=== PATIENT | female | born 1945 | race Caucasian/White ===

== ENCOUNTER 2016-09-12 13:15 | Outpatient (RCR) | payer OTHER ==
--- OUTSIDE RECORDS SUMMARY | 2016-09-05 12:46 | XMS REPORT | Continuity of Care Document ---
Author Author [facility] Organization [facility] Address Unknown Phone Unavailable Support Name Relationship Address Phone TRINIDAD TREADWELL MD Caregiver [facility] [address] [facility] [place], [place]. [address] [place] [address] JORGE EDSIR DO Caregiver [address] [place], [place] [id number] ALESSANDRO BONILLA MD Caregiver [facility] [address] [place] [address] UNKNOWN Caregiver Unknown Unavailable KRYSTA HOWARD Next Of Kin [address] [place] [address] Insurance Providers Payer Name Policy Number Subscriber Name [facility] [id number] Renee Howard 18 Self / Same As Patient s Medicare [id number] Renee Howard 18 Self / Same As Patient Advance Directives Directive Response Recorded Date/Time Advance Directives No 09/02/16 11:24am Organ Donor Yes 09/02/16 11:24am Resuscitation Status Full Code 09/02/16 11:24am Chief Complaint and Reason for Visit Chief Complaint SYNCOPE Reason for Visit Hypotension Syncope Problems Active Problems Medical Problem Onset Date Status Hypotension Unknown Acute Syncope Unknown Acute Medications No known medications. Social History Social History Problem Response Recorded Date/Time Alcohol Use Denies Use 09/02/2016 11:24am Recreational Drug Use No 09/02/2016 11:24am Recent Foreign Travel No 09/02/2016 11:24am Recent Infectious Disease Exposure No 09/02/2016 11:24am Hospitalization with Isolation Denies 09/03/2016 3:43pm Smoking Status Never a Smoker 09/02/2016 11:24am Recent Hopitalizations No 09/02/2016 11:24am Hospitalization with Isolation Denies 09/03/2016 3:43pm Query Response Start Date Stop Date Smoking Status Never a Smoker Hospital Discharge Instructions Patient Instructions Physician Instructions Patient Instructions: PT NEEDS TO CHECK BLOOD PRESSURE AT HOME TWICE DAILY - WITH HEART RATE RECORDED AND PT TO BRING TO OFFICE WITH HER AT HER NEXT APPT Resume Normal Activity: Yes Discharge Diet: Regular Diet Diet After 24 Hours: Clear Liquid if Nauseous Drink 6-8 Glasses of Fluid/Day: Yes Driving Instructions: No Driving for 24 Hours Symptoms to Reoprt to Dr.: Appetite Changes, Fever Over 101 Degrees F, Pain/Pressure in Chest, Lightheadedness For Problems or Questions: Contact Your Physician, Go to Emergency Room Infection Signs and Symptoms: Temperature Above 101 F Care Plan Patient Instructions:: PT NEEDS TO CHECK BLOOD PRESSURE AT HOME TWICE DAILY - WITH HEART RATERECORDED AND PT TO BRING TO OFFICE WITH HER AT HER NEXT APPT Plan of Care Discharge Date 09/03/16 2:45pm Disposition 01 HOME, SELF-CARE Instructions/Education Provided Syncope (Fainting) (DC) Prescriptions See Medication Section Referrals [facility] (Unspecified) - 2 Weeks Reason(s) for Referral: Syncope Hypotension Care Plan and Goals See Discharge Instructions Section Functional Status Query Response Date Recorded Patient Orientation Person Place Time Situation September 03, 2016 3:43pm Patient Orientation Person Place Time Situation September 03, 2016 3:43pm Comprehension Ability Understands Concepts September 03, 2016 9:00am Allergies, Adverse Reactions, Alerts No known allergies. Immunizations No immunization records. Vital Signs Acute Vital Signs Vital Response Date/Time Temperature (Fahrenheit) 97.9 degrees F (97.6 - 99.5) 09/03/2016 12:00pm Temperature (Calculated Celsius) 36.71459 degrees C (36.4 - 37.5) 09/03/2016 12:00pm Temperature Source Tympanic 09/03/2016 12:00pm Pulse Rate (adult) 75 bpm (60 - 90) 09/03/2016 1:00pm Respiratory Rate 16 bpm (12 - 24) 09/03/2016 12:00pm O2 Sat by Pulse Oximetry 96 % (88 - 100) 09/03/2016 12:00pm Blood Pressure 120/81 mm Hg 09/03/2016 12:00pm Blood Pressure Mean 94 mm Hg 09/03/2016 12:00pm Pain Numeric Pain Scale 0-No Pain 09/03/2016 12:00pm Pain Numeric Pain Scale 0-No Pain 09/03/2016 12:00pm Height (Feet) 5 feet 09/02/2016 11:24am Height (Inches) 4.00 inches 09/02/2016 11:24am Height (Calculated Centimeters) 162.297123 cm 09/02/2016 11:24am Weight (Pounds) 187 pounds 09/03/2016 6:00am Weight (Ounces) 7.0 oz 09/03/2016 6:00am Weight (Calculated Grams) 37592.221 gm 09/03/2016 6:00am Weight (Calculated Kilograms) 85.931646 kilograms 09/03/2016 6:00am Calculated BMI 32.0 09/02/2016 11:24am Capillary Refill Capillary Refill Less Than 3 Seconds 09/03/2016 9:00am Results Laboratory Results Test Name Result Units Flags Reference Collection Date/Time Result Date/ Time Comments White Blood Count 9.0 10^3/uL 4.3-11.0 09/03/2016 4:00am 09/03/2016 4: 38am Red Blood Count 3.78 10^6/uL L 4.35-5.85 09/03/2016 4:00am 09/03/2016 4: 38am Hemoglobin 11.7 G/DL 11.5-16.0 09/03/2016 4:00am 09/03/2016 4:38am Hematocrit 36 % 35-52 09/03/2016 4:00am 09/03/2016 4:38am Mean Corpuscular Volume 96 FL 80-99 09/03/2016 4:00am 09/03/2016 4: 38am Mean Corpuscular Hemoglobin 31 PG 25-34 09/03/2016 4:00am 09/03/2016 4: 38am Mean Corpuscular Hemoglobin Concent 32 G/DL 32-36 09/03/2016 4:00am 4:38am Red Cell Distribution Width 13.6 % 10.0-14.5 09/03/2016 4:00am 2015 4:38am Platelet Count 248 10^3/uL 130-400 09/03/2016 4:00am 09/03/2016 4:38am Mean Platelet Volume 10.3 FL 7.4-10.4 09/03/2016 4:00am 09/03/2016 4: 38am Neutrophils (%) (Auto) 53 % 42-75 09/03/2016 4:00am 09/03/2016 4:38am Lymphocytes (%) (Auto) 36 % 12-44 09/03/2016 4:00am 09/03/2016 4:38am Monocytes (%) (Auto) 9 % 0-12 09/03/2016 4:00am 09/03/2016 4:38am Eosinophils (%) (Auto) 1 % 0-10 09/03/2016 4:00am 09/03/2016 4:38am Basophils (%) (Auto) 0 % 0-10 09/03/2016 4:00am 09/03/2016 4:38am Neutrophils # (Auto) 4.8 X 10^3 1.8-7.8 09/03/2016 4:00am 09/03/2016 4: 38am Lymphocytes # (Auto) 3.3 X 10^3 1.0-4.0 09/03/2016 4:00am 09/03/2016 4: 38am Monocytes # (Auto) 0.8 X 10^3 0.0-1.0 09/03/2016 4:00am 09/03/2016 4: 38am Eosinophils # (Auto) 0.1 10^3/uL 0.0-0.3 09/03/2016 4:00am 09/03/2016 4 :38am Basophils # (Auto) 0.0 10^3/uL 0.0-0.1 09/03/2016 4:00am 09/03/2016 4: 38am Prothrombin Time 12.3 SEC 12.2-14.7 09/02/2016 8:55am 09/02/2016 9: 19am INR Comment 0.9 0.8-1.4 09/02/2016 8:55am 09/02/2016 9:19am INTERPRETIVE DATA SUGGESTED THERAPEUTIC RANGE FOR INR'S: VENOUS THROMBOSIS, PULMONARY EMBOLISM, OR PREVENTION OF SYSTEMIC EMBOLISM (EG. IN ATRIAL FIBRILLATION): 2.0 - 3.0 MECHANICAL PROSTHETIC HEART VALVES: 2.5 - 3.5* *NOTE: INR'S UP TO 4.5 MAY BE NECESSARY IN SELECTED GROUPS OF HIGH RISK PATIENTS. [employer] [place] [employer] CHEST PH[employer]IC[employer]ANS CONSENSUS CONFERENCE ON ANTITHROMBOTIC THERAPY (2000). Activated Partial Thromboplast Time 25 SEC 24-35 09/02/2016 8:55am 9:19am Sodium Level 139 MMOL/L 135-145 09/03/2016 4:00am 09/03/2016 4:58am Potassium Level 3.8 MMOL/L 3.6-5.0 09/03/2016 4:00am 09/03/2016 4:58am Chloride Level 106 MMOL/L 98-107 09/03/2016 4:00am 09/03/2016 4:58am Carbon Dioxide Level 23 MMOL/L 21-32 09/03/2016 4:00am 09/03/2016 4: 58am Anion Gap 10 MMOL/L 5-14 09/03/2016 4:00am 09/03/2016 4:58am Blood Urea Nitrogen 15 MG/DL 7-18 09/03/2016 4:00am 09/03/2016 4:58am Creatinine 1.00 MG/DL 0.60-1.30 09/03/2016 4:00am 09/03/2016 4:58am BUN/Creatinine Ratio 15 09/03/2016 4:00am 09/03/2016 4:58am Estimat Glomerular Filtration Rate 54 09/03/2016 4:00am 09/03/2016 4:58am GFR INTERPRETIVE DATA UNITS FOR ESTIMATED GFR (eGFR): mL/min/1.73 M2 REFERENCE RANGE FOR ESTIMATED GFR (eGFR) eGFR NORMAL eGFR >60 MODERATELY DECREASED eGFR 30-59 SEVERLY DECREASED eGFR 15-29 KIDNEY FAILURE <15 (OR DIALYSIS) Glucose Level 103 MG/DL 70-105 09/03/2016 4:00am 09/03/2016 4:58am Calcium Level 8.4 MG/DL L 8.5-10.1 09/03/2016 4:00am 09/03/2016 4:58am Magnesium Level 2.2 MG/DL 1.8-2.4 09/02/2016 8:55am 09/02/2016 9:34am Total Bilirubin 0.4 MG/DL 0.1-1.0 09/03/2016 4:00am 09/03/2016 4:58am Alkaline Phosphatase 46 U/L 40-136 09/03/2016 4:00am 09/03/2016 4:58am Aspartate Amino Transf (AST/SGOT) 23 U/L 5-34 09/03/2016 4:00am 2015 4:58am Alanine Aminotransferase (ALT/SGPT) 26 U/L 0-55 09/03/2016 4:00am 09/03 4:58am Troponin I < 0.30 NG/ML <0.30 09/02/2016 8:51pm 09/02/2016 9:17pm Troponin I < 0.30 NG/ML <0.30 09/02/2016 8:55am 09/02/2016 9:37am Myoglobin 44.6 NG/ML 10.0-92.0 09/02/2016 8:55am 09/02/2016 9:37am Total Protein 5.8 G/DL L 6.4-8.2 09/03/2016 4:00am 09/03/2016 4:58am Albumin 3.4 G/DL 3.2-4.5 09/03/2016 4:00am 09/03/2016 4:58am Triglycerides Level 105 MG/DL <150 09/03/2016 4:00am 09/03/2016 4:58am Cholesterol Level 132 MG/DL < 200 09/03/2016 4:00am 09/03/2016 4:58am HDL Cholesterol 38 MG/DL L 40-60 09/03/2016 4:00am 09/03/2016 4:58am LDL Cholesterol Direct 67 MG/DL 1-129 09/03/2016 4:00am 09/03/2016 4: 58am VLDL Cholesterol 21 MG/DL 5-40 09/03/2016 4:00am 09/03/2016 4:58am Procedures Procedure Status Date Provider(s) Tracing only of electrocardiogram Active 09/02/16 TRINIDAD TREADWELL MD Tracing only of electrocardiogram Active 09/02/16 JORGE DESIR DO Tracing only of electrocardiogram Active 09/02/16 JORGE DESIR DO Color Doppler echocardiography Completed 09/02/16 JORGE DESIR DO Encounters Encounter Location Arrival/Admit Date Discharge/Depart Date Attending Provider Admitted Inpatient (obs) [facility] 09/02/16 10:08am JORGE DESIR DO Recent Diagnosis Hypotension Syncope
== END 2016-12-04 | disposition home or self-care (01) ==
LOC: CARD 13:15
PROVIDERS: ATTEND Internal Medicine Interventional Cardiology
DX: R55 Syncope and collapse (principal)
CPT/HCPCS: 93270

== ENCOUNTER 2016-10-10 08:12 | Outpatient (RCR) | payer OTHER, MEDICARE ==
--- OUTSIDE RECORDS SUMMARY | 2016-10-10 08:18 | XMS REPORT | Continuity of Care Document ---
Author Author [facility] Organization [facility] Address Unknown Phone Unavailable Support Name Relationship Address Phone TRINIDAD TREADWELL MD Caregiver [facility] [address] [address], [place]. [address] [place] [address] JORGE DESIR DO Caregiver [address] [place], [place] [id number] ALESSANDRO BONILLA MD Caregiver [facility] [place] [address] [place] [address] UNKNOWN Caregiver Unknown Unavailable KRYSTA HOWARD Next Of Kin [address] [place] [address] Insurance Providers Payer Name Policy Number [facility]scriber [facility] [id number] Renee Howard 18 Self / Same As Patient s Medicare [id number] Renee Howard 18 Self / Same As [...] (Fainting) (DC) Prescriptions See Medication Section Referrals [facility] (Unspecified) - 2 Weeks Reason(s) for [...] - 99.5) 09/03/2016 12:00pm Temperature (Calculated Celsius) 36.07125 degrees C (36.4 - 37.5) 09/03/2016 12:00pm [...] 4.00 inches 09/02/2016 11:24am Height (Calculated Centimeters) 162.010701 cm 09/02/2016 11:24am Weight (Pounds) 187 pounds 09/03/2016 6:00am Weight (Ounces) 7.0 oz 09/03/2016 6:00am Weight (Calculated Grams) 66028.221 gm 09/03/2016 6:00am Weight (Calculated Kilograms) 85.299472 kilograms 09/03/2016 6:00am Calculated BMI 32.0 09/02/2016 [...] SELECTED GROUPS OF HIGH RISK PATIENTS. [employer] [place] [employer] CONSENSUS CONFERENCE ON [...] Date Attending Provider Admitted Inpatient (obs) [facility] 09/02/16 10:08am JORGE DESIR DO Recent Diagnosis Hypotension Syncope
== END 2016-12-18 | disposition home or self-care (01) ==
LOC: CARD 08:12
PROVIDERS: ATTEND Internal Medicine Interventional Cardiology
DX: R55 Syncope and collapse (principal)

== ENCOUNTER → 2017-04-18 | Outpatient (CLI) | payer OTHER ==
--- NOTE | 2017-04-19 08:26 | Diagnostic Imaging Report ---
Bilateral screening mammogram 2D views with tomosynthesis The current study was also evaluated with a Computer Aided Detection (CAD) system. Indication: Screening. No current complaints stated on the questionnaire. COMPARISON: 02/06/2011. FINDINGS: The breasts are composed of scattered fibroglandular densities. There are scattered benign-appearing calcifications. Allowing for technique and positional differences, no suspicious change is seen. IMPRESSION: No significant change. ACR BI-RADS Category 2: Benign findings. Result letter will be mailed to the patient. Note: At least 10% of breast cancer is not imaged by mammography. Dictated by: Dictated on workstation # [id number]
== END ==
LOC: RAD 13:59
PROVIDERS: ATTEND Family Medicine
DX: Z12.31 Encounter for screening mammogram for malignant neoplasm of breast (principal)
CPT/HCPCS: 77067

== ENCOUNTER 2019-05-07 15:10 | Observation (INO) | payer MEDICARE, OTHER ==
[~2019-05-07] VITALS: Ht 152.4 cm; Wt 80.3 kg
[2019-05-07] MEDS ORDERED: LACTATED RINGERS 1,000 ML IV ONE (15:17)
[2019-05-07] MEDS ORDERED: PROMETHAZINE INJ 25 MG/ML (PHENERGAN) AMP ONE (15:23)
[2019-05-07 15:24] LABS: BASOPHILS % (AUTO) 0 % (0-10); EOSINOPHILS # (AUTO) 0.1 10^3/uL (0.0-0.3); EOSINOPHILS % (AUTO) 1 % (0-10); HEMATOCRIT 39 % (35-52); HEMOGLOBIN 12.9 G/DL (11.5-16.0); LYMPHOCYTES # (AUTO) 5.9 X 10^3 (1.0-4.0); LYMPHOCYTES % (AUTO) 47 % (12-44); MEAN CORPUSCULAR HEMOGLOBIN 31 PG (25-34); MEAN CORPUSCULAR HGB CONC 33 G/DL (32-36); MEAN CORPUSCULAR VOLUME 94 FL (80-99); MEAN PLATELET VOLUME 10.5 FL (7.4-10.4); MONOCYTES # (AUTO) 1.3 X 10^3 (0.0-1.0); MONOCYTES % (AUTO) 10 % (0-12); NEUTROPHILS # (AUTO) 5.3 X 10^3 (1.8-7.8); NEUTROPHILS % (AUTO) 42 % (42-75); PLATELET COUNT 291 10^3/uL (130-400); RED CELL DISTRIBUTION WIDTH 14.1 % (10.0-14.5); WHITE BLOOD COUNT 12.7 10^3/uL (4.3-11.0)
[2019-05-07 15:40] LABS: PROTHROMBIN TIME PATIENT 13.2 SEC (12.2-14.7)
[2019-05-07] MEDS ORDERED: HYDR25TA4 PO (15:43)
[2019-05-07] MEDS ORDERED: LISI40TA PO (15:43)
[2019-05-07] MEDS ORDERED: SIMV20TA3 PO (15:43)
[2019-05-07 15:48] LABS: ALANINE AMINOTRANSFERASE 23 U/L (0-55); ALBUMIN 4.1 GM/DL (3.2-4.5); ALKALINE PHOSPHATASE 64 U/L (40-136); BILIRUBIN,TOTAL 0.5 MG/DL (0.1-1.0); BUN/CREATININE RATIO 13; CALCIUM 9.8 MG/DL (8.5-10.1); CARBON DIOXIDE 25 MMOL/L (21-32); CHLORIDE 100 MMOL/L (98-107); CREATININE SERUM 1.08 MG/DL (0.60-1.30); GFR ESTIMATED 49; GLUCOSE 123 MG/DL (70-105); MAGNESIUM 1.4 MG/DL (1.6-2.4); POTASSIUM 3.5 MMOL/L (3.6-5.0); SODIUM 140 MMOL/L (135-145); TOTAL PROTEIN 7.4 GM/DL (6.4-8.2)
[2019-05-07] MEDS ORDERED: PROMETHAZINE INJ 25 MG/ML (PHENERGAN) AMP IVP STA (15:56)
[2019-05-07] MEDS ORDERED: ONDANSETRON 4 MG/2 ML (SDV) Z0FRAN IVP ONE (16:00)
--- NOTE | 2019-05-07 16:15 | Diagnostic Imaging Report ---
INDICATION: Vomiting. COMPARISON: 09/02/2016 FINDINGS: Single frontal view of the chest demonstrates normal heart size and pulmonary vascularity. The lungs show low inspiratory volumes, but are otherwise clear. No large pleural effusion or pneumothorax is seen. The visualized osseous structures show no acute abnormalities. IMPRESSION: 1. No acute cardiopulmonary process. Dictated by: Dictated on workstation # [id number]
--- NOTE | 2019-05-07 16:33 | ED Syncope ---
General Chief Complaint: Cardiac/General Problems Stated Complaint: SYNCOPAL EPISODE Nursing Triage Note: PT PRESENTS TO ED VIA MANAGER WINTER TEAM. PT WAS SPOUSE OF A PT AT THE [facility]. ACCORDING TO MANAGER WINTER RN, PT REPORTS FEELING ILL WHILE IN WAITING ROOM AND STARTED FEELING FAINT AND NAUSEATED. PT HAD A SYNCOPAL EPISODE. PT REPORTED SHE TOOK ONE OF HER HUSBANDS [place] FOR SHOULDER/UPPER BACK PAIN THIS AM WHICH SHE HAS NEVER TAKEN BEFORE. UPON ARRIVL TO ED PT IS RESPONSIVE AND REPORTS SHE IS SICK AND FEELS HOT. PT IS ACTIVELY VOMITING AND DIAPHORETIC . Source of Information: Patient Exam Limitations: No Limitations History of Present Illness Date Seen by Provider: May 07, 2019 Time Seen by Provider: 15:09 Initial Comments Here on a cart from the heart catheter area where she was waiting for family member to be finished with his heart catheter evaluation. When the doctor came out, patient passed out and has been vomiting. She was unresponsive and they could not palpate a pulse initially although they were able to find it. They brought her emergently here where she continued to vomit and the partially unresponsive. Apparently she had pain somewhere and took one of her 's hydrocodone's earlier which may have precipitated the event. She later reported that she had an episode similar to this about 3 years ago at [place]. Very similar presentation and event. She had full cardiac workup at that point and it was all negative and she is worried because she does not want to go through all of that again. Timing/Prior Episodes: Remote History Precipitating Factors: Emotional Stress Loss of Consciousness: Brief (Seconds) Current Symptoms: Lightheadedness, Nausea, Pale, Weak/Absent Pulse Allergies and Home Medications Allergies Coded Allergies: No Known Drug Allergies (Unverified , 09/02/16) Patient Home Medication List Home Medication List Reviewed: Yes Review of Systems Constitutional: see HPI, chills; No fever; weakness Cardiovascular: see HPI; No chest pain; syncope Gastrointestinal: nausea, vomiting Skin: see HPI Psychiatric/Neurological: See HPI Review of systems from later in visit. Currently only with mild nausea but feeling better. All Other Systems Reviewed Negative Unless Noted: Yes Past Qiaxwiy-Bdbqjp-Bappen Hx Past Med/Social Hx: Reviewed Nursing Past Med/Soc Hx Patient Social History Alcohol Use: Denies Use Recreational Drug Use: No Smoking Status: Never a Smoker Recent Foreign Travel: No Contact w/Someone Who Travel: No Recent Infectious Disease Expo: No Recent Hopitalizations: No Physical Abuse: No Sexual Abuse: No Mistreated: No Fear: No Immunizations Up To Date Date of Pneumonia Vaccine: Jun 20, 2016 Date of Influenza Vaccine: Jun 20, 2016 Seasonal Allergies Seasonal Allergies: No Past Medical History Surgeries: Yes Gallbladder Respiratory: No Cardiac: Yes High Cholesterol, Hypertension Neurological: No Reproductive Disorders: No Genitourinary: No Gastrointestinal: No Musculoskeletal: No Endocrine: No Cancer: No Psychosocial: No Integumentary: No Blood Disorders: No Family Medical History Reviewed Nursing Family Hx No Pertinent Family Hx Physical Exam Vital Signs Vital Signs - First Documented 05/07/19 15:19 Temp 96.5 Pulse 65 Resp 14 B/P (MAP) 112/57 (75) Pulse Ox 98 Capillary Refill : Less Than 3 Seconds Height, Weight, BMI Height: 5'4.00" Weight: 177lbs. 7.0oz. 80.586303gm; 32.0 BMI Method:Stated General Appearance: WD/WN, Moderate Distress HEENT: PERRL/EOMI, Pharynx Normal Neck: Non Tender, Supple Cardiovascular: No Murmur, Bradycardia Respiratory: Lungs Clear, Normal Breath Sounds Gastrointestinal: Non Tender, Soft Back: Normal Inspection, No CVA Tenderness, No Vertebral Tenderness Extremities: Normal Range of Motion, Non Tender Neurologic/Psychiatric: Alert, Other (initially week response and somnolent but has improved through the ED visit and now is alert and oriented 3) Cranial Nerves: Normal Hearing, Normal Speech, PERRL Motor/Sensory: No Motor Deficit, No Sensory Deficit Skin: Normal Color, Cool, Diaphoresis, Pallor Progress/Results/Core Measures Results/Orders Lab Results Laboratory Tests Test 05/07/19 15:15 Range/Units White Blood Count 12.7 H 4.3-11.0 10^3/uL Red Blood Count 4.18 L 4.35-5.85 10^6/uL Hemoglobin 12.9 11.5-16.0 G/DL Hematocrit 39 35-52 % Mean Corpuscular Volume 94 80-99 FL Mean Corpuscular Hemoglobin 31 25-34 PG Mean Corpuscular Hemoglobin Concent 33 32-36 G/DL Red Cell Distribution Width 14.1 10.0-14.5 % Platelet Count 291 130-400 10^3/uL Mean Platelet Volume 10.5 H 7.4-10.4 FL Neutrophils (%) (Auto) 42 42-75 % Lymphocytes (%) (Auto) 47 H 12-44 % Monocytes (%) (Auto) 10 0-12 % Eosinophils (%) (Auto) 1 0-10 % Basophils (%) (Auto) 0 0-10 % Neutrophils # (Auto) 5.3 1.8-7.8 X 10^3 Lymphocytes # (Auto) 5.9 H 1.0-4.0 X 10^3 Monocytes # (Auto) 1.3 H 0.0-1.0 X 10^3 Eosinophils # (Auto) 0.1 0.0-0.3 10^3/uL Basophils # (Auto) 0.0 0.0-0.1 10^3/uL Prothrombin Time 13.2 12.2-14.7 SEC INR Comment 1.0 0.8-1.4 Activated Partial Thromboplast Time 28 24-35 SEC Sodium Level 140 135-145 MMOL/L Potassium Level 3.5 L 3.6-5.0 MMOL/L Chloride Level 100 98-107 MMOL/L Carbon Dioxide Level 25 21-32 MMOL/L Anion Gap 15 H 5-14 MMOL/L Blood Urea Nitrogen 14 7-18 MG/DL Creatinine 1.08 0.60-1.30 MG/DL Estimat Glomerular Filtration Rate 49 BUN/Creatinine Ratio 13 Glucose Level 123 H 70-105 MG/DL Calcium Level 9.8 8.5-10.1 MG/DL Corrected Calcium 9.7 8.5-10.1 MG/DL Magnesium Level 1.4 L 1.6-2.4 MG/DL Total Bilirubin 0.5 0.1-1.0 MG/DL Aspartate Amino Transf (AST/SGOT) 28 5-34 U/L Alanine Aminotransferase (ALT/SGPT) 23 0-55 U/L Alkaline Phosphatase 64 40-136 U/L Myoglobin 45.6 10.0-92.0 NG/ML Troponin I < 0.028 <0.028 NG/ML Total Protein 7.4 6.4-8.2 GM/DL Albumin 4.1 3.2-4.5 GM/DL My Orders Orders - TURNER BURGESS MD Cbc With Automated Diff (05/07/19 15:17) Magnesium (05/07/19 15:17) Chest 1 View, Ap/Pa Only (05/07/19 15:17) Ekg Tracing (05/07/19 15:17) Cardiac Profile 1 (05/07/19 15:17) Comprehensive Metabolic Panel (05/07/19 15:17) Myoglobin Serum (05/07/19 15:17) Protime With Inr (05/07/19 15:17) Partial Thromboplastin Time (05/07/19 15:17) O2 (05/07/19 15:17) Monitor-Rhythm Ecg Trace Only (05/07/19 15:17) Lipid Panel (05/08/19 06:00) Ed Iv/Invasive Line Start (05/07/19 15:17) Lactated Ringers (Lr 1000 Ml Iv Solution (05/07/19 15:17) Promethazine Injection (Phenergan Injec (05/07/19 15:23) Promethazine Injection (Phenergan Injec (05/07/19 15:56) Ondansetron Injection (Zofran Injectio (05/07/19 16:00) Medications Given in ED Current Medications Medications Dose Ordered Sig/Andrew Route Start Time Stop Time Status Last Admin Dose Admin Lactated Ringer's 1,000 ml @ 0 mls/hr Q0M ONCE IV 05/07/19 15:17 05/07/19 15:19 DC 05/07/19 15:38 0 MLS/HR Ondansetron HCl 8 mg ONCE ONCE IVP 05/07/19 16:00 05/07/19 16:01 DC 05/07/19 15:30 8 MG Vital Signs/I&O 05/07/19 15:19 Temp 96.5 Pulse 65 Resp 14 B/P (MAP) 112/57 (75) Pulse Ox 98 Blood Pressure Mean: 75 Progress Progress Note : Progress Note Seen and evaluated. IV, labs, chest x-ray, EKG and LR 1 L bolus ordered. Zofran 8 mg IV ordered. This did not stop the vomiting. Promethazine 6.25 mg IV ordered. Monitor patient. 1635: Patient doing a little better but still weak and shaky. The vomiting has improved. Patient did relay that this event has happened previously as discussed in the history of present illness. She is worried be cause she does not want to go through full cardiac workup but is agreeable to staying in observation given her severity of event. I did discuss the case with Dr. Moreno who agrees. Admit, observation status. 1647: I have consulted Dr. Ivy, who will also see her. We will continue Zofran and promethazine when necessary as well as IV fluids and initiate clear liquids overnight. Admit, observation status. Patient agrees to plan. Initial ECG Impression Date: May 07, 2019 Initial ECG Impression Time: 15:13 Initial ECG Rate: 60 Initial ECG Rhythm: Normal Sinus Initial ECG Impression: Normal Initial ECG Comparisson: Unchanged Comment Sinus rhythm with normal axis. No evidence of ST elevation AK. Similar to previous of 02 September 2016. Interpreted by me. Diagnostic Imaging Diagonstic Imaging: Xray Plain Films/CT/US/NM/MRI: chest Comments [facility] [place], [place] NAME: MOR HOWARD [facility] REC#: [id number] PT STATUS: REG ER : 1945 PHYSICIAN: TURNER BURGESS MD ADMIT DATE: 05/07/19/ER Draft Date of Exam:05/07/19 CHEST 1 VIEW, AP/PA ONLY INDICATION: Vomiting. COMPARISON: 09/02/2016 FINDINGS: Single frontal view of the chest demonstrates normal heart size and pulmonary vascularity. The lungs show low inspiratory volumes, but are otherwise clear. No large pleural effusion or pneumothorax is seen. The visualized osseous structures show no acute abnormalities. IMPRESSION: 1. No acute cardiopulmonary process. Dictated on workstation # [id number] Dict: 05/07/19 1612 Trans: 05/07/19 1614 [facility] [id number] Interpreted by: ALINA CONN MD Electronically signed by: Departure Communication (Admissions) Time/Spoke to Admitting Phy: 16:35 Time/Spoke to Consulting Phy: 16:47 Impression Primary Impression: Syncope Qualified Codes: R55 - Syncope and collapse Additional Impression: Nausea and vomiting Qualified Codes: R11.2 - Nausea with vomiting, unspecified Disposition: ADMITTED INPATIENT Condition: Stable Admissions Decision to Admit Reason: Admit from ER (General) Decision to Admit/Date: May 07, 2019 Time/Decision to Admit Time: 16:35 Departure-Patient Inst. Referrals: FRANCO MORENO MD (PCP/Family) Primary Care Physician TURNER BURGESS MD May 07, 2019 16:32
--- NOTE | 2019-05-07 17:14 | Consultation-Cardiology ---
HPI-Cardiology Cardiology Consultation: Date of Consultation 05/07/19 Date of Admission Attending Physician Admitting Physician Marija Moreno MD Consulting Physician Jennyfer IVY MD HPI: Time Seen by a Provider: 17:38 Chief Complaint: syncope this is a 73-year-old lady with history of hypertension and hyperlipidemia on medications. She was visiting the hospital to see her who was having her cardiology procedure. She had taken hydrocodone at around noontime today. In the cardiac catheterization lab while waiting for her procedure to finish, she started to feel unwell. Our nurse in the lab had her sit down. She briefly spoke to me about her were told us that she was not feeling very well. And then she became unresponsive. We quickly put her on a bed. She had cool clammy extremities with feeble pulse. We were going to start CPR but with a sternal rub, she became responsive. Blood pressure was 73 systolic. We quickly rushed her to the ER where she vomited profusely and complained of belly discomfort. Heart rate was in the 60s and initial EKG showed sinus rhythm with no acute ST-T wave abnormalities. I came back to the cardiac catheterization lab for another procedure. After finishing the procedure I went back to see her. She was feeling much better and not complaining of any significant cardiac symptoms. Her heart rate was sinus rhythm at 51 BPM. Initial blood pressure 90 systolic. Repeat blood pressure was 110 systolic. She is receiving IV fluids. Review of Systems-Cardiology Review of Systems Constitutional: As described under HPI; No As described under HPI, No no symptoms reported, No chills, No fever, No lightheadedness Eyes: No As described under HPI, No no symptoms reported, No blindness, No blurred vision, No contact lenses, No drainage, No decreased acuity, No foreign body sensation, No pain, No vision change Ears/Nose/Throat: No As described under HPI, No no symptoms reported, No chronic hearing loss, No ear discharge, No ear pain, No nasal drainage, No ulcerations Respiratory: No no symptoms reported; As described under HPI; No As described under HPI, No cough, No orthopnea, No shortness of breath, No SOB with excertion Cardiovascular: syncope Gastrointestinal: nausea/vomiting/diarrhea Genitourinary: No As described under HPI, No burning, No dysuria, No discharge, No frequency, No flank pain, No hematuria, No urgency : Yes : No Skin: No rash, No skin related problems, No ulcerations Psychiatric/Neurological: No anxiety, No depression, No seizure, No focal weakness, No syncope Hematologic: No bleeding abnormalities All Other Systems Reviewed Negative Unless Noted: Yes DFG-Fqjphf-Jfzgch Hx Patient Social History Alcohol Use: Denies Use Recreational Drug Use: No Smoking Status: Never a Smoker Recent Foreign Travel: No Recent Infectious Disease Expo: No Immunizations Up To Date Date of Pneumonia Vaccine: Jun 20, 2016 Date of Influenza Vaccine: Jun 20, 2016 Past Medical History PMH As described under Assessment. Allergies and Home Medications Allergies Coded Allergies: No Known Drug Allergies (Unverified , 09/02/16) Patient Home Medication List Home Medication List Reviewed: Yes Physical Exam-Cardiology Physical Exam Vital Signs/I&O 05/07/19 15:19 Temp 96.5 Pulse 65 Resp 14 B/P (MAP) 112/57 (75) Pulse Ox 98 Capillary Refill : Less Than 3 Seconds Constitutional: appears stated age, AAO x 3; No apparent distress; well-dev eloped, well-nourished HEENT: PERRL; No discharge; hearing is well preserved, oral hygience is good; No ulceration, No xanthelasmas are seen Neck: No carotid bruit; carotid pulses are 2 + bilaterally Respiratory: No accessory muscle use, No respiratory distress, No chest tender, No chest expansion is symmetric; chest is bilaterally symmetric; No lungs clear to percussion; lungs clear to auscultation; No crackles, No rhonchi, No rales, No stridor, No wheezing, No pleural rub, No other Cardiovascular: regular rate-rhythm; No irregularly irregular, No extra beats, No parasternal heave is noted, No JVD, No edema; bradycardia; No tachycardia, No point of maximal impulse, No cardiac thrills are palpable; S1 and S2; No gallop/S3, No gallop/S4, No diastolic murmur; systolic murmur; No friction rub, No click, No other Gastrointestinal: No tender; soft; No round, No distended, No pulsatile mass, No organomegaly, No guarding, No rebound, No tenderness, No hernia, No mass; audible bowel sounds; No abnormal bowel sounds, No abdominal bruits, No spleenomegaly, No other Rectal: deferred Extremities: normal range of motion, non-tender, normal inspection; No clubbing, No cyanosis, No significant edema Neurologic/Psychiatric: No astrobiologist II-XII nml as tested; no motor/sensory deficits, alert, normal mood/affect, oriented x 3; No abnormal cerebellar tests, No ab normal astrobiologist II-XII, No abnormal gait, No aphasia, No EOM palsy, No facial droop, No motor weakness, No sensory deficit, No depressed affect, No disoriented x 3, No other, No grossly intact; power is 5/5 both on sides Skin: No rash, No ulcerations Data Review Labs Laboratory Tests 05/07/19 15:15: White Blood Count 12.7H, Red Blood Count 4.18L, Hemoglobin 12.9, Hematocrit 39, Mean Corpuscular Volume 94, Mean Corpuscular Hemoglobin 31, Mean Corpuscular Hemoglobin Concent 33, Red Cell Distribution Width 14.1, Platelet Count 291, Mean Platelet Volume 10.5H, Neutrophils (%) (Auto) 42, Lymphocytes (%) (Auto) 47H, Monocytes (%) (Auto) 10, Eosinophils (%) (Auto) 1, Basophils (%) (Auto) 0, Neutrophils # (Auto) 5.3, Lymphocytes # (Auto) 5.9H, Monocytes # (Auto) 1.3H, Eosinophils # (Auto) 0.1, Basophils # (Auto) 0.0, Prothrombin Time 13.2, INR Comment 1.0, Activated Partial Thromboplast Time 28, Sodium Level 140, Potassium Level 3.5L, Chloride Level 100, Carbon Dioxide Level 25, Anion Gap 15H, Blood Urea Nitrogen 14, Creatinine 1.08, Estimat Glomerular Filtration Rate 49, BUN/Creatinine Ratio 13, Glucose Level 123H, Calcium Level 9.8, Corrected Calcium 9.7, Magnesium Level 1.4L, Total Bilirubin 0.5, Aspartate Amino Transf (AST/SGOT) 28, Alanine Aminotransferase (ALT/SGPT) 23, Alkaline Phosphatase 64, Myoglobin 45.6, Troponin I < 0.028, Total Protein 7.4, Albumin 4.1 ECG Impression ECG Initial ECG Rhythm: Normal Sinus Initial ECG Impression: Normal A/P-Cardiology Assessment/Admission Diagnosis syncope, hypotension, Vomiting, Hypertension, Hyperlipidemia, Hypomagnesemia, Hypokalemia Mild mitral stenosis. Plan syncope, continue telemetry monitoring overnight. Echocardiogram. Serial troponin. I spoke about an event monitor and possible implantable loop recorder in the future. Patient is hesitant to do an event monitor and an implantable loop recorder. However she will think about it overnight and let us know in the morning. syncope could be vasovagal in nature due to significant vomiting. She was significantly hypotensive.which could be due to vagovagal syncope. IV fluids were given with improvement. Vomiting,likely due to hydrocodone. Hypertension,no medications at this point in time. Hyperlipidemia,simvastatin. Hypomagnesemia,replace per protocol. Hypokalemia, place per protocol. Mild mitral stenosis. echocardiogram. Thank you for your consultation. Please call me if you have any questions. Taylor Ivy MD, FACP, FACC, FSCAI, FHRS, CCDS Interventional Cardiology Cardiac Electrophysiology Vascular Medicine and Endovascular Interventions eJnnyfer IVY MD May 07, 2019 17:14
[2019-05-07] MEDS ORDERED: NS IV 1000 ML 1,000 ML IV SCH (17:30)
--- NOTE | 2019-05-07 18:05 | NUR ---
PT ARRIVED TO FLOOR VIA CART FROM ED. ADMITTED TO ROOM 406 WITH ADMITTING DIAGNOSIS OF VASOVAGAL, SYNCOPE, N/V. PT IS A/O X4. REPORTS FEELING NAUSEATED FROM THE RIDE UP TO ROOM. IV TO LEFT AC INTACT WITH NS RUNNING AT 100ML/HR. PT ORIENTED TO ROOM. CALL LIGHT WITHIN REACH. REQUESTING CLEAR LIQUID TRAY.
[2019-05-07 18:30] VITALS: BP 116/79
[2019-05-07 18:32] VITALS: BP 116/79
[2019-05-07] MEDS ORDERED: CATHETER FLUSH 10 ML SYR IV PRN (19:15)
[2019-05-07] MEDS ORDERED: ONDANSETRON 4 MG/2 ML (SDV) Z0FRAN IV PRN (19:15)
[2019-05-07] MEDS ORDERED: PROMETHAZINE INJ 25 MG/ML (PHENERGAN) AMP IV PRN (19:15)
[2019-05-07] MEDS ORDERED: ACETAMINOPHEN 500 MG TAB (TYLENOL) PO PRN (19:15)
[2019-05-07] MEDS: NS IV 1000 ML 1,000 ML IV SCH (19:39)
[2019-05-07 19:40] VITALS: BP 94/58
[2019-05-07 23:53] VITALS: BP 92/57
[2019-05-08 04:23] VITALS: BP 112/62
[2019-05-08] MEDS: NS IV 1000 ML 1,000 ML IV SCH (04:26)
[2019-05-08 05:58] LABS: BASOPHILS % (AUTO) 0 % (0-10); EOSINOPHILS # (AUTO) 0.1 10^3/uL (0.0-0.3); EOSINOPHILS % (AUTO) 1 % (0-10); HEMATOCRIT 36 % (35-52); HEMOGLOBIN 11.7 G/DL (11.5-16.0); LYMPHOCYTES % (AUTO) 39 % (12-44); MEAN CORPUSCULAR HEMOGLOBIN 31 PG (25-34); MEAN CORPUSCULAR HGB CONC 33 G/DL (32-36); MEAN CORPUSCULAR VOLUME 96 FL (80-99); MEAN PLATELET VOLUME 11.3 FL (7.4-10.4); MONOCYTES # (AUTO) 0.8 X 10^3 (0.0-1.0); MONOCYTES % (AUTO) 10 % (0-12); NEUTROPHILS # (AUTO) 3.8 X 10^3 (1.8-7.8); NEUTROPHILS % (AUTO) 49 % (42-75); PLATELET COUNT 202 10^3/uL (130-400); RED CELL DISTRIBUTION WIDTH 13.9 % (10.0-14.5); WHITE BLOOD COUNT 7.7 10^3/uL (4.3-11.0)
[2019-05-08 06:27] LABS: ALANINE AMINOTRANSFERASE 28 U/L (0-55); ALBUMIN 3.5 GM/DL (3.2-4.5); ALKALINE PHOSPHATASE 46 U/L (40-136); BILIRUBIN,TOTAL 0.6 MG/DL (0.1-1.0); BUN/CREATININE RATIO 15; CALCIUM 8.8 MG/DL (8.5-10.1); CARBON DIOXIDE 22 MMOL/L (21-32); CHLORIDE 104 MMOL/L (98-107); CHOLESTEROL 139 MG/DL (< 200); CREATININE SERUM 0.92 MG/DL (0.60-1.30); GFR ESTIMATED 60; GLUCOSE 96 MG/DL (70-105); HDL CHOLESTEROL 45 MG/DL (40-60); POTASSIUM 3.5 MMOL/L (3.6-5.0); SODIUM 141 MMOL/L (135-145); TOTAL PROTEIN 6.2 GM/DL (6.4-8.2); TRIGLYCERIDES 115 MG/DL (<150); VLDL CHOLESTEROL 23 MG/DL (5-40)
[2019-05-08 08:00] VITALS: BP 94/59
--- NOTE | 2019-05-08 09:39 | Short Stay Summary ---
History of Present Illness History of Present Illness Reason for visit/HPI PT IS A 73 Y/O FEMALE WHO IS KNOWN TO ME FROM CLINIC. SHE PRESENTED TO THE ER AFTER HAVING A SYNCOPAL EPISODE IN THE WAITING ROOM OF THE CARDIAC STORE GIFT [employer] [facility]. THE PATIENT'S WAS HAVING A PROCEDURE ON SATURDAY AND SHE WAS HAVING QUITE A BIT OF PAIN IN HER UPPER BACK, SO SHE TOOK ONE OF HIS OLD HYDROCODONE SO THAT SHE WOULD BE ABLE TO STAND SITTING FOR MOST OF THE DAY. SHE REPORTS THAT SHE DID NOT HAVE ANY TROUBLE WITH THE MEDICATION MAKING HER FEEL BAD, SHE SAT IN THE WAITING AREA FOR A FEW HOURS, THEN STOOD UP AND AMBULATED TO THE HALLWAY WHERE SHE SAW HER AND WAS GIVEN THE REPORT ON HIS CATH. SHE STATES THAT SHE STARTED TO FEEL LIGHT-HEADED, BECAME DIZZY, SAT DOWN AND THE NEXT THING SHE REMEMBERED SHE WAS BEING WHEELED TO THE ER ON A STRETCHER. SHE STATES THAT SHE HAS NOT HAD ANY CHEST PAIN, OTHER DIZZINESS, SHORTNESS OF BREATH, ABDOMINAL PAIN, NAUSEA, OR OTHER PROBLEMS PRIOR TO THIS HOSPITALIZATION. Date of Admission May 07, 2019 at 17:00 Date of Discharge 05/08/19 @1000 Time Seen by Provider: 09:15 Attending Physician Franco Moreno MD Admitting Physician Franco Moreno MD Consult DR. RASMUSSEN Allergies and Home Medications Allergies Coded Allergies: No Known Drug Allergies (Unverified , 09/02/16) Home Medications Olmesartan Medoxomil 40 Mg Tablet, 40 MG PO DAILY if sbp is less than or equal to 115, hold the medication, check bp in 2 hours, if bp is normal then take the medication Prescribed by: FRANCO MORENO on 05/08/19 0945 Simvastatin 20 Mg Tablet, 20 MG PO HS, (Reported) Patient Home Medication List Home Medication List Reviewed: Yes Past Cdtdgak-Cbovkh-Kfyakj Hx Patient Social History Marrital Status: Living Status: LIVES AT HOME WITH HER Employed/Student: retired Alcohol Use: Denies Use Recreational Drug Use: No Smoking Status: Never a Smoker 2nd Hand Smoke Exposure: No Physical Abuse Screen: No Sexual Abuse: No Recent Foreign Travel: No Contact w/other who traveled: No Recent Hopitalizations: No Recent Infectious Disease Expo: No Immunizations Up To Date Date of Pneumonia Vaccine: May 07, 2016 Date of Influenza Vaccine: Jun 20, 2016 Seasonal Allergies Seasonal Allergies: No Surgeries Yes Gallbladder Respiratory No Cardiovascular Yes High Cholesterol, Hypertension Neurological No Reproductive System : No Hx Reproductive Disorders: No Sexually Transmitted Disease: No HIV/AIDS: No Female Reproductive Disorders: Denies Genitourinary No Gastrointestinal No Musculoskeletal No Endocrine History of Endocrine Disorders: No Cancer No Psychosocial History of Psychiatric Problem: No Integumentary History of Skin or Integumenta: No Blood Transfusions History of Blood Disorders: No Reviewed Nursing Assessment Reviewed/Agree w Nursing PMH: Yes Family Medical History Significant Family History: Cancer, Hypertension Family Hx: FHx: brain tumor 19 FATHER Hypertension 19 FATHER 19 MOTHER Review of Systems Constitutional: No chills, No fever, No malaise, No weakness EENTM: No hearing loss, No vision loss, No throat pain Respiratory: No cough, No dyspnea on exertion, No short of breath Cardiovascular: No chest pain, No edema, No palpitations Gastrointestinal: No abdominal pain, No constipation, No diarrhea, No nausea Genitourinary: no symptoms reported; No dysuria, No frequency Musculoskeletal: no symptoms reported Skin: no symptoms reported Psychiatric/Neurological: No Symptoms Reported; Denies Anxiety, Denies Depressed, Denies Weakness All Other Systems Reviewed Negative Unless Noted: Yes Physical Exam Vital Signs Vital Signs - First Documented 05/07/19 05/07/19 15:19 16:30 Temp 96.5 Pulse 65 Resp 14 B/P (MAP) 112/57 (75) Pulse Ox 98 O2 Delivery Nasal Cannula O2 Flow Rate 2.00 Capillary Refill : Less Than 3 Seconds Height, Weight, BMI Height: 5'0.00" Weight: 177lbs. 0.0oz. [id number]; 32.0 BMI Method:Stated General Appearance: No Apparent Distress, WD/WN Eyes: Bilateral Eye Normal Inspection, Bilateral Eye PERRL, Bilateral Eye EOMI HEENT: PERRL/EOMI, Pharynx Normal Neck: Full Range of Motion, Non Tender, Supple Respiratory: Chest Non Tender, Lungs Clear, Normal Breath Sounds, No Accessory Muscle Use, No Respiratory Distress Cardiovascular: Regular Rate, Rhythm, No Edema, Normal Peripheral Pulses Gastrointestinal: Normal Bowel Sounds, No Organomegaly, Non Tender, Soft Rectal: Deferred Back: Normal Inspection, Other (TTP ALONG RIGHT UPPER BACK NEAR SCAPULA) Extremity: Normal Capillary Refill, Normal Inspection, Non Tender, No Calf Tenderness Neurologic/Psychiatric: Alert, Oriented x3, No Motor/Sensory Deficits, Normal Mood/Affect, smash piecer II-XII Norm as Tested Skin: Normal Color, Warm/Dry Lymphatic: No Adenopathy Clinical Quality Measures DVT/VTE Risk/Contraindication: Risk Factor Score Per Nursin RFS Level Per Nursing on Admit: 2=Moderate Short Stay Diagnosis Discharge Diagnosis-Short Stay Admission Diagnosis: SYNCOPAL EPISODE HYPERTENSION - CHRONIC ACUTE HYPOTENSION HYPERTENSION HYPOKALEMIA HYPOMAGNESEMIA EMESIS Final Discharge Diagnosis: SYNCOPAL EPISODE HYPERTENSION - CHRONIC ACUTE HYPOTENSION HYPERTENSION HYPOKALEMIA HYPOMAGNESEMIA EMESIS Conclusion Labs Laboratory Tests 05/07/19 15:15: White Blood Count 12.7H, Red Blood Count 4.18L, Hemoglobin 12.9, Hematocrit 39, Mean Corpuscular Volume 94, Mean Corpuscular Hemoglobin 31, Mean Corpuscular Hemoglobin Concent 33, Red Cell Distribution Width 14.1, Platelet Count 291, Mean Platelet Volume 10.5H, Neutrophils (%) (Auto) 42, Lymphocytes (%) (Auto) 47H, Monocytes (%) (Auto) 10, Eosinophils (%) (Auto) 1, Basophils (%) (Auto) 0, Neutrophils # (Auto) 5.3, Lymphocytes # (Auto) 5.9H, Monocytes # (Auto) 1.3H, Eosinophils # (Auto) 0.1, Basophils # (Auto) 0.0, Prothrombin Time 13.2, INR Comment 1.0, Activated Partial Thromboplast Time 28, Sodium Level 140, Potassium Level 3.5L, Chloride Level 100, Carbon Dioxide Level 25, Anion Gap 15H, Blood Urea Nitrogen 14, Creatinine 1.08, Estimat Glomerular Filtration Rate 49, BUN/Creatinine Ratio 13, Glucose Level 123H, Calcium Level 9.8, Corrected Calcium 9.7, Magnesium Level 1.4L, Total Bilirubin 0.5, Aspartate Amino Transf (AST/SGOT) 28, Alanine Aminotransferase (ALT/SGPT) 23, Alkaline Phosphatase 64, Myoglobin 45.6, Troponin I < 0.028, Total Protein 7.4, Albumin 4.1 05/08/19 04:50: Sodium Level 141, Potassium Level 3.5L, Chloride Level 104, Carbon Dioxide Level 22, Anion Gap 15H, Blood Urea Nitrogen 14, Creatinine 0.92, Estimat Glomerular Filtration Rate 60, BUN/Creatinine Ratio 15, Glucose Level 96, Calcium Level 8.8, Corrected Calcium 9.2, Total Bilirubin 0.6, Aspartate Amino Transf (AST/SGOT) 24, Alanine Aminotransferase (ALT/SGPT) 28, Alkaline Phosphatase 46, Troponin I < 0.028, Total Protein 6.2L, Albumin 3.5, Triglycerides Level 115, Cholesterol Level 139, LDL Cholesterol Direct 66, VLDL Cholesterol 23, HDL Cholesterol 45 05/08/19 05:30: White Blood Count 7.7, Red Blood Count 3.73L, Hemoglobin 11.7, Hematocrit 36, Mean Corpuscular Volume 96, Mean Corpuscular Hemoglobin 31, Mean Corpuscular Hemoglobin Concent 33, Red Cell Distribution Width 13.9, Platelet Count 202, Mean Platelet Volume 11.3H, Neutrophils (%) (Auto) 49, Lymphocytes (%) (Auto) 39, Monocytes (%) (Auto) 10, Eosinophils (%) (Auto) 1, Basophils (%) (Auto) 0, Neutrophils # (Auto) 3.8, Lymphocytes # (Auto) 3.0, Monocytes # (Auto) 0.8, Eosinophils # (Auto) 0.1, Basophils # (Auto) 0.0 Conclusion/Plan SYNCOPAL EPISODE HYPERTENSION - CHRONIC ACUTE HYPOTENSION HYPOKALEMIA HYPOMAGNESEMIA EMESIS SYNCOPAL EPISODE - DISCUSSED WITH PT - THIS IS MULTIFACTORIAL - DUE TO MEDICATION, NEED TO RULE OUT CARDIAC CAUSES, PT TO HAVE AN EVENT MONITOR PLACED, AND TO SEE DR. RASMUSSEN IN FOLLOW UP AN OUTPATIENT. HYPERTENSION - CHRONIC WITH AN EPISODE OF ACUTE HYPOTENSION - STOP HCTZ, CONTINUE WITH OLMESARTAN. HYPOKALEMIA AND HYPOMAGNESEMIA - REPLENISHED WITH IV AND ORAL SUPPLEMENTATION. EMESIS - RESOLVED AFTER FLUIDS AND ZOFRAN. DISCHARGE TO HOME WITH NEW MEDICATION REGIMEN. MONITOR SYMPTOMS, FOLLOW UP WITH DR. MORENO'S OFFICE IN 1 WEEK. FRANCO MORENO MD May 08, 2019 09:39
[2019-05-08] MEDS ORDERED: OLME40TA18 PO (09:45)
--- NOTE | 2019-05-08 09:47 | Discharge Inst-Complex ---
PDI Reconcile Patient Problems Problems Reviewed?: Yes Med Rec & Follow Up Appt. Prescription: Transmitted to Pharmacy Activity, Diet and PDI Resume Normal Activity: Yes Discharge Diet: Regular Diet Diet for 24 Hours: No Alcohol, No [employer] Diet After 24 Hours: Clear Liquid if Nauseous Drink 6-8 Glasses of Fluid/Day: Yes Driving Instructions: No Driving for 24 Hours Return to The Hospital For: any concern for chest pain, shortness of breath, abdominal pain, nausea or any lifethreatening illness or injury Symptoms to Reoprt to : Numbness/Tingling, Fever Over 101 Degrees F, Pain/Pressure in Chest, Lightheadedness, Nausea/Vomiting, Shortness of Breath For Problems or Questions: Contact Your Physician, Go to Emergency Room Infection Signs and Symptoms: Temperature Above 101 F FRANCO CHOW MD May 08, 2019 09:47
--- NOTE | 2019-05-08 09:47 | NUR ---
UPDATED MED REC WITH WHAT HAS BEEN FILLED RECENTLY ACCORDING TO THE EXT MED HX. DISCHARGE ORDERS WERE ENTERED BEFORE I WAS ABLE TO VERIFY WITH THE PATIENT. SHE VERIFIED THE PRESCRIPTIONS WERE CORRECT. ADDITIONALLY SHE TAKES A CALCIUM +D AND VITAMIN D OTC. I DID NOT HAVE A CHANCE TO ADD THESE TO THE MED REC PRIOR TO DISCHARGE ORDERS.
--- NOTE | 2019-05-08 10:54 | NUR ---
provided prayer and Communion.
--- NOTE | 2019-05-08 13:04 | Cardiology Progress Note ---
Cardiology SOAP Progress Note Subjective: No further cardiac complaints. Objective: I&O/Vital Signs 05/08/19 05/08/19 05/08/19 05/08/19 04:23 07:00 08:00 08:00 Temp 98.0 98.0 Pulse 62 64 65 Resp 18 18 B/P (MAP) 112/62 (79) 94/59 (71) Pulse Ox 98 96 O2 Delivery Room Air Room Air Room Air 05/08/19 00:00 Intake Total 1840 ml Output Total 550 ml Balance 1290 ml Weight (Pounds): 177 Weight (Ounces): 0.0 Weight (Calculated Kilograms): 80.132627 Constitutional: appears stated age, AAO x 3; No apparent distress; well- developed, well-nourished Respiratory: No accessory muscle use, No respiratory distress, No chest tender, No chest expansion is symmetric; chest is bilaterally symmetric; No lungs clear to percussion; lungs clear to auscultation; No crackles, No rhonchi, No rales, No stridor, No wheezing, No pleural rub, No other Cardiovascular: regular rate-rhythm; No irregularly irregular, No extra beats, No parasternal heave is noted, No JVD, No edema; bradycardia; No tachycardia, No point of maximal impulse, No cardiac thrills are palpable; S1 and S2; No gallop/S3, No gallop/S4, No diastolic murmur; systolic murmur; No friction rub, No click, No other Gastrointestional: No tender; soft; No round, No distended, No pulsatile mass, No organomegaly, No guarding, No rebound, No tenderness, No hernia, No mass; audible bowel sounds; No abnormal bowel sounds, No abdominal bruits, No spleenomegaly, No other Extremities: normal range of motion, non-tender, normal inspection; No clubbing, No cyanosis, No significant edema Neurologic/Psychiatric: No athletic scout II-XII nml as tested; no motor/sensory deficits, alert, normal mood/affect, oriented x 3; No abnormal cerebellar tests, No abnormal athletic scout II-XII, No abnormal gait, No aphasia, No EOM palsy, No facial droop, No motor weakness, No sensory deficit, No depressed affect, No disoriented x 3, No other, No grossly intact; power is 5/5 both on sides Skin: No rash, No ulcerations Results/Procedures: Labs Laboratory Tests 05/07/19 15:15: White Blood Count 12.7H, Red Blood Count 4.18L, Hemoglobin 12.9, Hematocrit 39, Mean Corpuscular Volume 94, Mean Corpuscular Hemoglobin 31, Mean Corpuscular Hemoglobin Concent 33, Red Cell Distribution Width 14.1, Platelet Count 291, Mean Platelet Volume 10.5H, Neutrophils (%) (Auto) 42, Lymphocytes (%) (Auto) 47H, Monocytes (%) (Auto) 10, Eosinophils (%) (Auto) 1, Basophils (%) (Auto) 0, Neutrophils # (Auto) 5.3, Lymphocytes # (Auto) 5.9H, Monocytes # (Auto) 1.3H, Eosinophils # (Auto) 0.1, Basophils # (Auto) 0.0, Prothrombin Time 13.2, INR Comment 1.0, Activated Partial Thromboplast Time 28, Sodium Level 140, Potassium Level 3.5L, Chloride Level 100, Carbon Dioxide Level 25, Anion Gap 15H, Blood U yudi Nitrogen 14, Creatinine 1.08, Estimat Glomerular Filtration Rate 49, BUN/Creatinine Ratio 13, Glucose Level 123H, Calcium Level 9.8, Corrected Calcium 9.7, Magnesium Level 1.4L, Total Bilirubin 0.5, Aspartate Amino Transf (AST/SGOT) 28, Alanine Aminotransferase (ALT/SGPT) 23, Alkaline Phosphatase 64, Myoglobin 45.6, Troponin I < 0.028, Total Protein 7.4, Albumin 4.1 05/08/19 04:50: Sodium Level 141, Potassium Level 3.5L, Chloride Level 104, Carbon Dioxide Level 22, Anion Gap 15H, Blood Urea Nitrogen 14, Creatinine 0.92, Estimat Glomerular Filtration Rate 60, BUN/Creatinine Ratio 15, Glucose Level 96, Calcium Level 8.8, Corrected Calcium 9.2, Total Bilirubin 0.6, Aspartate Amino Transf (AST/SGOT) 24, Alanine Aminotransferase (ALT/SGPT) 28, Alkaline Phosphatase 46, Troponin I < 0.028, Total Protein 6.2L, Albumin 3.5, Triglycerides Level 115, Cholesterol Level 139, LDL Cholesterol Direct 66, VLDL Cholesterol 23, HDL Cholesterol 45 05/08/19 05:30: White Blood Count 7.7, Red Blood Count 3.73L, Hemoglobin 11.7, Hematocrit 36, Mean Corpuscular Volume 96, Mean Corpuscular Hemoglobin 31, Mean Corpuscular Hemoglobin Concent 33, Red Cell Distribution Width 13.9, Platelet Count 202, Mean Platelet Volume 11.3H, Neutrophils (%) (Auto) 49, Lymphocytes (%) (Auto) 39, Monocytes (%) (Auto) 10, Eosinophils (%) (Auto) 1, Basophils (%) (Auto) 0, Neutrophils # (Auto) 3.8, Lymphocytes # (Auto) 3.0, Monocytes # (Auto) 0.8, Eosinophils # (Auto) 0.1, Basophils # (Auto) 0.0 A/P: Assessment/Dx: syncope, hypotension, Vomiting, Hypertension, Hyperlipidemia, Hypomagnesemia, Hypokalemia Mild mitral stenosis. Plan: syncope, no further cardiac complaints. Ambulating well without any dizziness. Telemetry over night was normal. Echocardiogram showed normal LV function with no significant valvular heart disease. Event monitor for 30 days on discharge. Follow-up with cardiology as an outpatient. She was significantly hypotensive.which could be due to vagovagal syncope. IV fluids were given with improvement. Vomiting,likely due to hydrocodone. Hypertension,no medications at this point in time. Hyperlipidemia,simvastatin. Hypomagnesemia,replace per protocol. Hypokalemia, place per protocol. Mild mitral stenosis. echocardiogram. Thank you for your consultation. Please call me if you have any questions. Taylor Ivy MD, FACP, FACC, FSCAI, FHRS, CCDS Interventional Cardiology Cardiac Electrophysiology Vascular Medicine and Endovascular Interventions Jennyfer IVY MD May 08, 2019 13:04
== END 2019-05-08 09:00 | disposition home or self-care (01) ==
LOC: EDUNIT# 15:10 → ER 15:14 → 4TH 17:00 → UNDOADMOB 17:00 → 4TH 18:05 → UNDODISOB 05-08 11:35
PROVIDERS: ADMIT Family Medicine; ATTEND Family Medicine
DX: R55 Syncope and collapse (principal); I95.9 Hypotension, unspecified; I10 Essential (primary) hypertension; E78.5 Hyperlipidemia, unspecified; E83.42 Hypomagnesemia; E87.6 Hypokalemia; I34.1 Nonrheumatic mitral (valve) prolapse
CPT/HCPCS: 36415; 71045; 80053; 80061; 83735; 83874; 84484; 85025; 85610; 85730; 93005; 93041; 93306; 96361; 96374; 96375; G0378

== ENCOUNTER 2019-05-08 11:49 | Outpatient (RCR) | payer MEDICARE, OTHER ==
[~2019-05-08 11:49] MED LIST: HYDR25TA4 PO; LISI40TA PO; OLME40TA18 PO; SIMV20TA3 PO
== END 2019-08-06 | disposition home or self-care (01) ==
LOC: CARD 11:49
PROVIDERS: ATTEND Family Medicine
DX: R55 Syncope and collapse (principal); I95.1 Orthostatic hypotension

== ENCOUNTER → 2019-06-25 | Outpatient (CLI) | payer MEDICARE, OTHER ==
--- NOTE | 2019-06-25 12:11 | Diagnostic Imaging Report ---
PROCEDURE: US carotid duplex, bilateral. TECHNIQUE: Multiple real-time grayscale images were obtained over the carotid arteries in various projections, bilaterally. Additional spectral analysis and color Doppler duplex images were also obtained. INDICATION: Syncope. FINDINGS: Minimal plaquing of the carotid bifurcations is noted. No velocity elevations or stenosis seen. Both vertebral arteries show antegrade flow. There is a hypoechoic nodule in the right lobe of the thyroid. IMPRESSION: 1. No evidence of a hemodynamically significant stenosis. 2. Right lobe thyroid nodule. Dedicated thyroid ultrasound could be performed for further characterization. Parameters based on the consensus panel Stuart-Scale and Doppler ultrasound criteria published July 2003, Radiology, Volume 229. DOPPLER (peak systolic velocity M/S Right Left CCA .89 1.05 ICA Proximal .58 .66 ICA Mid .76 .66 ICA Distal .72 1.09 RATIO .9 1.04 ECA .87 .53 VERT .36 .35 Dictated by: Dictated on workstation # [id number]
== END ==
LOC: CARD 10:54
PROVIDERS: ATTEND Internal Medicine Interventional Cardiology
DX: E04.1 Nontoxic single thyroid nodule (principal); R55 Syncope and collapse
CPT/HCPCS: 93880

== ENCOUNTER → 2019-08-31 | Outpatient (CLI) | payer MEDICARE, OTHER ==
--- NOTE | 2019-08-31 15:13 | Diagnostic Imaging Report ---
PROCEDURE: US Thyroid. TECHNIQUE: Multiple real-time grayscale images were obtained of the thyroid in various projections. INDICATION: Thyroid nodule noted on recent carotid Doppler. COMPARISON: Correlation is made with the carotid ultrasound from 06/25/2019. FINDINGS: Right lobe of the thyroid measures 4.8 x 1.8 x 2.1 cm and the left lobe measures 4.4 x 2.1 x 1.4 cm. Isthmus is 4 mm in thickness. Left lobe contains a tiny hypoechoic nodule in the upper pole measuring 6 mm x 4 mm. A right lobe contains two nodules. Fairly well-circumscribed hypoechoic nodule in the upper pole measures 1.1 x 0.9 x 1.1 cm. No associated microcalcifications are seen. There is a second solid nodule in the mid aspect of the right lobe more isoechoic with the surrounding thyroid parenchyma. This measures 2.1 x 1.8 x 1.5 cm. No microcalcifications are seen. No other masses are identified. IMPRESSION: Right lobe thyroid nodules, largest in the mid to lower pole. Fine-needle aspiration of this nodule could be performed. 6-month follow-up of the upper pole nodule is recommended. Dictated by: Dictated on workstation # [id number]
== END ==
LOC: RAD 13:05
PROVIDERS: ATTEND Family Medicine
DX: E04.2 Nontoxic multinodular goiter (principal)
CPT/HCPCS: 76536

== ENCOUNTER → 2019-09-30 | Outpatient (CLI) | payer MEDICARE, OTHER ==
[~2019-09-30] VITALS: Ht 152.4 cm; Wt 79.5 kg
[~2019-09-30] MED LIST changes: +LIDOCAINE 1% INJ 20 ML 20 ML VIAL INJ ONE; +SIMV20TA26 PO; -SIMV20TA3 PO
--- NOTE | 2019-09-30 12:47 | Diagnostic Imaging Report ---
INDICATION: Right thyroid nodule. Patient presents for ultrasound guided fine needle aspiration. Patient is brought to the procedure room and placed on the table in the supine position. Ultrasound imaging of the right neck was performed to evaluate appropriate entry site. The right neck was then prepped and draped in usual sterile fashion. A small amount of 1% lidocaine was utilized for local anesthesia. A total of 4 passes were made into the solid nodule in the mid right thyroid lobe utilizing 25-gauge needles and fine-needle aspiration technique. The patient tolerated the procedure well and left the department in satisfactory condition. IMPRESSION: Successful ultrasound-guided fine-needle aspiration of the dominant solid nodule in the mid right lobe thyroid. Pathology results are currently pending. Dictated by: Dictated on workstation # [id number]
== END ==
LOC: RAD 10:58
PROVIDERS: ATTEND Family Medicine
DX: E04.2 Nontoxic multinodular goiter (principal)
CPT/HCPCS: 88173; 88305

== ENCOUNTER → 2020-02-17 | Outpatient (CLI) | payer MEDICARE, OTHER ==
[~2020-02-17] MED LIST changes: -LIDOCAINE 1% INJ 20 ML 20 ML VIAL INJ ONE
--- NOTE | 2020-02-17 15:24 | Diagnostic Imaging Report ---
PROCEDURE: US Thyroid. TECHNIQUE: Multiple Real-time grayscale images were obtained of the thyroid in various projections. INDICATION: Thyroid nodule, followup. COMPARISON: Correlation is made with the prior thyroid ultrasound from 08/31/2019. FINDINGS: The right lobe of the thyroid measures 3.8 x 1.7 x 2.0 cm and the left lobe measures 4.0 x 1.6 x 2.1 cm. The isthmus is 5 mm in thickness. A hypoechoic nodule in the upper pole right lobe measures 1.1 x 1.3 x 1.0 cm compared with 1.1 x 1.1 cm. A transverse measurement was not provided on the prior exam. The larger mixed solid and cystic nodule in the lower pole of the right lobe measures 1.7 x 1.6 x 1.7 cm. This compares with 2.1 x 1.8 x 1.5 cm on the prior exam. There is more cystic component on today's exam. The subcentimeter 5 mm nodule in the upper pole of the left lobe is seen and stable. IMPRESSION: Stable bilateral thyroid nodules. The dominant nodule in the mid to lower right lobe has a more cystic component on today's study. Dictated by: Dictated on workstation # [id number]
== END ==
LOC: RAD 14:09
PROVIDERS: ATTEND Otolaryngology Otolaryngology/Facial Plastic Surgery
DX: E04.2 Nontoxic multinodular goiter (principal)
CPT/HCPCS: 76536

== ENCOUNTER → 2020-12-19 | Outpatient (CLI) | payer MEDICARE, OTHER ==
[~2020-12-19] MED LIST changes: -LISI40TA PO; +LISI40TA9 PO
--- NOTE | 2020-12-19 16:33 | Diagnostic Imaging Report ---
PROCEDURE: US Thyroid. TECHNIQUE: Multiple real-time grayscale images were obtained of the thyroid in various projections. INDICATION: Multinodular goiter. COMPARISON: 02/17/2020. FINDINGS: The right thyroid lobe measures 4.5 x 1.9 x 1.7 cm. The background echotexture appears homogeneous. Vascularity appears normal. Two nodules are present: 1. In the posterosuperior right thyroid, there is a hypoechoic well-circumscribed nodule which measures 1.2 x 1.2 x 1.2 cm in size. This is stable since 08/31/2019. 2. In the posterior mid thyroid, there is a mostly solid isoechoic nodule with a small cystic component which measures 1.8 x 1.5 x 1.3 cm in size. This is mildly decreased in size compared to 08/31/2019. The isthmus measures 3 mm in thickness and appears normal. The left thyroid lobe measures 4.6 x 1.8 x 1.4 cm. There is mild heterogeneity of the echotexture but vascularity appears normal. There is a very small cystic focus measuring 6 mm, but no solid nodules are seen. IMPRESSION: 1. Two nodules in the right thyroid, which qualify for follow-up in one year based on TI-RADS criteria. Dictated by: Dictated on workstation # [id number]
== END ==
LOC: RAD 12:56
PROVIDERS: ATTEND Otolaryngology Otolaryngology/Facial Plastic Surgery
DX: E04.2 Nontoxic multinodular goiter (principal)
CPT/HCPCS: 76536

== ENCOUNTER 2021-09-18 09:14 | Emergency (ER) | payer MEDICARE, OTHER ==
[~2021-09-18] VITALS: Ht 152 cm; Wt 77.0 kg
--- NOTE | 2021-09-18 09:59 | ED Chest Pain ---
General Chief Complaint: Cardiac/General Problems Stated Complaint: CP Nursing Triage Note: AMB TO ROOM WITH R SHOULDER AND CHEST AND CHEST PAIN ONSET YESTERDAY AT 6PM PAIN WORSE WITH MOVEMENT. WHEN MOVNG ARM PAIN WORSE. Source: patient Exam Limitations: no limitations History of Present Illness Date Seen by Provider: Sep 18, 2021 Time Seen by Provider: 09:32 Initial Comments Patient ER by private conveyance from home with chief complaint that since 6:00 yesterday evening she was having some right-sided chest pain anteriorly going into her right shoulder. Worse with movement 10 out of 10 at its worse and when she lays still it is 0 out of 10. She did not take anything for it because she states she does not like to take medicines. She does not have a history of coronary disease. She has had 2 syncopal episodes in her life and had 2 separate work-ups for them last with Dr. Ivy. She is not having any nausea fevers chills cough shortness of air. She is describing 0 out of 10 pain right now but reproducible to direct palpation. Not related to passive movement of the right shoulder. She has a history of hypertension hyperlipidemia. No personal or familial history of coronary disease. No diabetes smoking COPD asthma or lung disease. No history of blood clots. She is had no rash. She did get the shingles shot yesterday year. Allergies and Home Medications Allergies Coded Allergies: No Known Drug Allergies (Unverified , 09/02/16) Patient Home Medication List Home Medication List Reviewed: Yes Olmesartan Medoxomil (Olmesartan Medoxomil) 40 Mg Tablet, 40 MG PO DAILY Prescribed by: FRANCO CHOW on 05/08/19 3276 Simvastatin (Simvastatin) 20 Mg Tablet, 20 MG PO HS, (Reported) Entered as Reported by: ISAC ÁLVAREZ on 05/07/19 9092 Review of Systems Review of Systems Constitutional: No chills, No diaphoresis EENTM: No Blurred Vision, No Double Vision Respiratory: Denies Cough, Denies Shortness of Air Cardiovascular: See HPI, Chest Pain; Denies Lightheadedness Gastrointestinal: Denies Abdominal Pain, Denies Constipated, Denies Diarrhea, Denies Nausea Genitourinary: Denies Burning, Denies Discharge Musculoskeletal: No back pain, No joint pain Skin: No pruritus, No rash Psychiatric/Neurological: Denies Anxiety, Denies Depressed All Other Systems Reviewed Negative Unless Noted: Yes Past Vxlfgmk-Jkvcoe-Urluyb Hx Patient Social History Tobacco Use?: No Smoking Status: Current Someday Smoker Substance use?: No Immunizations Up To Date First/Initial COVID19 Vaccinat: OCT Second COVID19 Vaccination Goyo: NOVEMBER COVID19 Vaccine 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: 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 ANNE Seasonal Allergies Seasonal Allergies: No Past Medical History Surgeries: Yes Gallbladder Respiratory: No Cardiac: Yes High Cholesterol, Hypertension Neurological: No Reproductive Disorders: No Genitourinary: No Gastrointestinal: No Musculoskeletal: No Endocrine: No Cancer: No Psychosocial: No Integumentary: No Blood Disorders: No Family Medical History FHx: brain tumor 19 FATHER Hypertension 19 FATHER 19 MOTHER No Pertinent Family Hx Physical Exam Vital Signs Vital Signs - First Documented 09/18/21 09/18/21 09:37 10:54 Temp 35.2 Pulse 72 Resp 18 B/P (MAP) 123/73 (90) Pulse Ox 99 O2 Delivery Room Air Capillary Refill : Less Than 3 Seconds Height, Weight, BMI Height: 5'0.00" Weight: 177lbs. 0.0oz. 80.490778kg; 33.00 BMI Method:Stated General Appearance: No Apparent Distress, WD/WN HEENT: PERRL/EOMI, Pharynx Normal, Moist Mucous Membranes Neck: Full Range of Motion, Normal Inspection Respiratory: No Chest Non Tender; Lungs Clear, Normal Breath Sounds, No Accessory Muscle Use, No Respiratory Distress Cardiovascular: Regular Rate, Rhythm, No Edema, Normal Peripheral Pulses Gastrointestinal: Normal Bowel Sounds, Non Tender, Soft Extremity: Normal Capillary Refill, Normal Inspection, No Pedal Edema Neurologic/Psychiatric: Alert, Oriented x3 Skin: Normal Color, Warm/Dry Progress/Results/Core Measures Results/Orders Lab Results Laboratory Tests Test 09/18/21 10:15 09/18/21 10:19 09/18/21 13:09 Range/Units White Blood Count 10.9 4.3-11.0 10^3/uL Red Blood Count 4.10 3.80-5.11 10^6/uL Hemoglobin 12.8 11.5-16.0 g/dL Hematocrit 39 35-52 % Mean Corpuscular Volume 95 80-99 fL Mean Corpuscular Hemoglobin 31 25-34 pg Mean Corpuscular Hemoglobin Concent 33 32-36 g/dL Red Cell Distribution Width 13.4 10.0-14.5 % Platelet Count 216 130-400 10^3/uL Mean Platelet Volume 10.7 9.0-12.2 fL Immature Granulocyte % (Auto) 1 % Neutrophils (%) (Auto) 73 42-75 % Lymphocytes (%) (Auto) 17 12-44 % Monocytes (%) (Auto) 9 0-12 % Eosinophils (%) (Auto) 0 0-10 % Basophils (%) (Auto) 0 0-10 % Neutrophils # (Auto) 8.0 H 1.8-7.8 10^3/uL Lymphocytes # (Auto) 1.8 1.0-4.0 10^3/uL Monocytes # (Auto) 1.0 0.0-1.0 10^3/uL Eosinophils # (Auto) 0.0 0.0-0.3 10^3/uL Basophils # (Auto) 0.0 0.0-0.1 10^3/uL Immature Granulocyte # (Auto) 0.1 0.0-0.1 10^3/uL Prothrombin Time 12.7 12.2-14.7 SEC INR Comment 0.9 0.8-1.4 Activated Partial Thromboplast Time 22 L 24-35 SEC D-Dimer 0.83 H 0.00-0.49 UG/ML Sodium Level 137 135-145 MMOL/L Potassium Level 3.9 3.6-5.0 MMOL/L Chloride Level 99 98-107 MMOL/L Carbon Dioxide Level 28 21-32 MMOL/L Anion Gap 10 5-14 MMOL/L Blood Urea Nitrogen 15 7-18 MG/DL Creatinine 0.98 0.60-1.30 MG/DL Estimat Glomerular Filtration Rate 55 BUN/Creatinine Ratio 15 Glucose Level 190 H 70-105 MG/DL Calcium Level 9.7 8.5-10.1 MG/DL Corrected Calcium 9.9 8.5-10.1 MG/DL Magnesium Level 1.6 1.6-2.4 MG/DL Total Bilirubin 0.7 0.1-1.0 MG/DL Aspartate Amino Transf (AST/SGOT) 17 5-34 U/L Alanine Aminotransferase (ALT/SGPT) 20 0-55 U/L Alkaline Phosphatase 55 40-136 U/L Myoglobin 39.0 10.0-92.0 NG/ML Troponin I < 0.028 < 0.028 <0.028 NG/ML B-Type Natriuretic Peptide 27.5 <100.0 PG/ML Total Protein 7.1 6.4-8.2 GM/DL Albumin 3.8 3.2-4.5 GM/DL Lipase 4 L 8-78 U/L Influenza Type A (RT-PCR) Not Detected Not Detecte Influenza Type B (RT-PCR) Not Detected Not Detecte SARS-CoV-2 RNA (RT-PCR) Not Detected Not Detecte My Orders Orders - CHRISTOPHER BORJA Continuous Ekg Monitoring (09/18/21 09:26) Ekg Tracing (09/18/21 09:26) Cbc With Automated Diff (09/18/21:52) Magnesium (09/18/21:52) Chest 1 View, Ap/Pa Only (09/18/21 09:52) Ekg Tracing (09/18/21 09:52) Comprehensive Metabolic Panel (09/18/21 09:52) Myoglobin Serum (09/18/21 09:52) Protime With Inr (09/18/21 09:52) Partial Thromboplastin Time (09/18/21 09:52) O2 (09/18/21 09:52) Monitor-Rhythm Ecg Trace Only (09/18/21 09:52) Lipid Panel (09/19/21 06:00) Ed Iv/Invasive Line Start (09/18/21 09:52) Lipase (09/18/21 09:52) Bnp Drew (09/18/21 09:52) Troponin I Wild (09/18/21 09:52) Aspirin Chewable Tablet (Baby Aspirin Ch (09/18/21 10:00) Covid 19 Inhouse Test (09/18/21 10:00) Influenza A And B By Pcr (09/18/21 10:00) Fibrin Degradation Products (09/18/21 10:15) Troponin I Drew (09/18/21 13:01) Medications Given in ED Current Medications Medications Dose Ordered Sig/Andrew Route Start Time Stop Time Status Last Admin Dose Admin Aspirin 324 mg ONCE ONCE PO 09/18/21 10:00 09/18/21 10:01 DC 09/18/21 10:04 324 MG Vital Signs/I&O 09/18/21 09/18/21 09/18/21 09:37 10:54 12:04 Temp 35.2 Pulse 72 70 66 Resp 18 18 18 B/P (MAP) 123/73 (90) 117/61 121/61 Pulse Ox 99 94 95 O2 Delivery Room Air Room Air Blood Pressure Mean: 90 Progress Progress Note #1: Time: 09:57 Progress Note Aspirin 324 mg. Is not any pain at this time so no nitroglycerin. We will swab for COVID and influenza get a chest x-ray labs. EKG unremarkable. With a normal troponin her heart score will be 5 points. We do not have any beds available locally. Since her pain started 16 hours ago we may talk to cardiology about just doing a delta troponin here in the ER and have her follow- up outpatient. Patient is okay with this plan. No evidence of shingles. Progress Note #2: Time: 13:02 Progress Note Despite the patient's elevated heart score its been 16 hours since her pain started she has no pain right now. Her troponin was negative if a 3-hour delta troponin time now is negative we can send her home and follow-up outpatient with Dr. Slaughter. We did discuss this case with Dr. Slaughter and he is in agreement with this plan. Progress Note #3: Time: 13:50 Progress Note The patient is still chest pain-free. She has had no material deterioration during her ER stay. She is going to follow-up outpatient with cardiology. Return precautions were given Initial ECG Impression Date: Sep 18, 2021 Initial ECG Impression Time: 09:23 Initial ECG Rate: 71 Initial ECG Rhythm: Normal Sinus Initial ECG Intervals: Normal Initial ECG Impression: Normal Initial ECG Comparisson: Unchanged Comment Normal sinus rhythm without clinically relevant ST elevation or depression. Diagnostic Imaging Diagonstic Imaging: Xray Plain Films/CT/US/NM/MRI: chest Comments [facility] [place], [place] NAME: MOR HOWARD [facility] REC#: [id number] PT STATUS: REG ER : 1945 PHYSICIAN: CHRISTOPHER BORJA MD ADMIT DATE: 09/18/21/ER Draft Date of Exam:09/18/21 CHEST 1 VIEW, AP/PA ONLY INDICATION: Right shoulder pain as well as chest pain. TIME OF EXAM: 10:07 AM. COMPARISON: Correlation is made with the prior chest of 05/07/2019. FINDINGS: The heart size is stable. There is some minimal linear atelectasis in the left base. The lungs are clear of acute infiltrates. No effusion is seen. There is no pneumothorax. IMPRESSION: No acute cardiopulmonary process is detected. Dictated on workstation # [id number] Dict: 09/18/21 1016 Trans: 09/18/21 1021 [id number] Interpreted by: PAYAL GOULD MD Electronically signed by: Reviewed: Discussed w/Radiologist Departure Impression Primary Impression: Right-sided chest pain Disposition: HOME, SELF-CARE Condition: Stable Departure-Patient Inst. Decision time for Depature: 13:50 Referrals: FRANCO CHOW MD (PCP/Family) Primary Care Physician GIOVANI SLAUGHTER MD Patient Instructions: Chest Pain (DC) Add. Discharge Instructions: While we could not discover the source of your chest pain today and this is encouraging. We will have you follow-up with the early childhood teacher assistant outpatient sometime this week by calling for an appointment to Dr. Slaughter. If he gives you clearance then you and your primary care doctor can continue looking for other sources of your pain. If your pain becomes intractable despite Tylenol, Motrin etc. then please return to the nearest ER for further evaluation. If your pain becomes severe then you can take hydrocodone 1 tablet every 6 hours as needed. This will cause some drowsiness and constipation. All discharge instructions reviewed with patient and/or family. Voiced understanding. Scripts Hydrocodone/Acetaminophen (Hydrocodone-Acetamin 5-325 mg) 1 Each Tablet 1 TAB PO Q6H PRN for PAIN-MODERATE (5-7), #10 TAB 0 Refills Prov: CHRISTOPHER BORJA 09/18/21 Copy Copies To 1: GIOVANI SLAUGHTER MD, TITUS J Sep 18, 2021 09:59
[2021-09-18] MEDS ORDERED: ASPIRIN 81 MG CHEW (CHILDREN'S ASA) PO ONE (10:00)
--- NOTE | 2021-09-18 10:21 | Diagnostic Imaging Report ---
INDICATION: Right shoulder pain as well as chest pain. TIME OF EXAM: 10:07 AM. COMPARISON: Correlation is made with the prior chest of 05/07/2019. FINDINGS: The heart size is stable. There is some minimal linear atelectasis in the left base. The lungs are clear of acute infiltrates. No effusion is seen. There is no pneumothorax. IMPRESSION: No acute cardiopulmonary process is detected. Dictated by: Dictated on workstation # [id number]
[2021-09-18 10:26] LABS: BASOPHILS % (AUTO) 0 % (0-10); EOSINOPHILS % (AUTO) 0 % (0-10); HEMATOCRIT 39 % (35-52); HEMOGLOBIN 12.8 g/dL (11.5-16.0); LYMPHOCYTES # (AUTO) 1.8 10^3/uL (1.0-4.0); LYMPHOCYTES % (AUTO) 17 % (12-44); MEAN CORPUSCULAR HEMOGLOBIN 31 pg (25-34); MEAN CORPUSCULAR HGB CONC 33 g/dL (32-36); MEAN CORPUSCULAR VOLUME 95 fL (80-99); MEAN PLATELET VOLUME 10.7 fL (9.0-12.2); MONOCYTES % (AUTO) 9 % (0-12); NEUTROPHILS % (AUTO) 73 % (42-75); PLATELET COUNT 216 10^3/uL (130-400); WHITE BLOOD COUNT 10.9 10^3/uL (4.3-11.0)
[2021-09-18 10:34] LABS: ALBUMIN 3.8 GM/DL (3.2-4.5); POTASSIUM 3.9 MMOL/L (3.6-5.0)
[2021-09-18 10:35] LABS: CALCIUM 9.7 MG/DL (8.5-10.1)
[2021-09-18 10:36] LABS: TOTAL PROTEIN 7.1 GM/DL (6.4-8.2)
[2021-09-18 10:37] LABS: FIBRIN DEGRADATION PRODUCTS 0.83 UG/ML (0.00-0.49); INR 0.9 (0.8-1.4); PROTHROMBIN TIME PATIENT 12.7 SEC (12.2-14.7)
[2021-09-18 10:38] LABS: BILIRUBIN,TOTAL 0.7 MG/DL (0.1-1.0)
[2021-09-18 10:40] LABS: CREATININE SERUM 0.98 MG/DL (0.60-1.30)
[2021-09-18 10:43] LABS: MAGNESIUM 1.6 MG/DL (1.6-2.4)
[2021-09-18] MEDS ORDERED: ACHD5005 PO (13:51)
[2021-09-18 14:00] VITALS: BP 139/76
== END 2021-09-18 14:00 | disposition home or self-care (01) ==
LOC: EDUNIT# 09:14 → ER 09:15
DX: R07.9 Chest pain, unspecified (principal); I10 Essential (primary) hypertension; E78.00 Pure hypercholesterolemia, unspecified; F17.290 Nicotine dependence, other tobacco product, uncomplicated; Z20.822 Contact with and (suspected) exposure to COVID-19; Z79.899 Other long term (current) drug therapy
CPT/HCPCS: 36415; 71045; 80053; 83690; 83735; 83874; 83880; 84484; 85025; 85379; 85610; 85730; 87636; 93005; 93041